=== PATIENT | male | born 1960 | race Caucasian/White ===

== ENCOUNTER 2019-05-28 21:09 | Emergency (ER) | payer OTHER ==
[~2019-05-28 21:09] MED LIST: ISOVUE-370 76%-LOCM 1 ML ONE
[2019-05-28 21:52] LABS: #Basophils 0.1 thou/uL (0.0-0.2); #Eosinphils 0.3 thou/uL (0.0-0.7); #Lymphocytes 1.2 thou/uL (1.20-3.40); #Monocytes 0.9 thou/uL (0.11-0.59); #Neutrophils 3.4 thou/uL (1.40-6.50); %Basophils 1.2 % (0.0-1.0); %Eosinophils 5.4 % (0.0-10.0); %Lymphocytes 20.2 % (21.0-51.0); %Monocytes 14.8 % (0.0-10.0); %Neutrophils 58.4 % (42.0-75.0); Hemoglobin 14.6 g/dL (14.0-18.0); Mean Corpuscular HGB CONC 33.6 g/dL (32.0-36.0); Mean Corpuscular Hemoglobin 30.3 pg (27.0-31.0); Mean Corpuscular Volume 90.2 fL (78.0-98.0); Mean Platelet Volume 7.7 fL (7.4-10.4); Platelet Count 241 thou/uL (130-400); RBC Distribution Width 11.3 % (11.5-14.5); Red Blood Cell (RBC) Count 4.82 mill/uL (4.70-6.10); White Blood Cell (WBC) Count 5.8 thou/uL (4.8-10.8)
[2019-05-28 22:13] LABS: ALT (SGPT) 23 U/L (8-55); AST (SGOT) 25 U/L (5-34); Albumin 4.4 g/dL (3.5-5.0); Alkaline Phosphatase 87 U/L (40-150); Anion Gap 15 mmol/L (10-20); BUN (Urea Nitrogen) 13 mg/dL (8.4-25.7); Bilirubin, Total 0.5 mg/dL (0.2-1.2); Calc. Creatinine Clearance 0 mL/min (70-130); Calcium 9.7 mg/dL (7.8-10.44); Carbon Dioxide 22 mmol/L (22-29); Chloride 103 mmol/L (98-107); Estimated GFR-MDRD 76; Globulin 3.5 g/dL (2.4-3.5); Glucose 85 mg/dL (70-105); Protein, Total 7.9 g/dL (6.0-8.3); Sodium 136 mmol/L (136-145)
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
== END 2019-05-28 23:50 | disposition home or self-care (01) ==
LOC: ERS 21:09
DX: K62.5 Hemorrhage of anus and rectum (principal)
CPT/HCPCS: 36415; 74177; 80053; 82274; 85025

== ENCOUNTER 2021-01-02 15:34 | Day surgery (SDC) | payer OTHER ==
[2021-01-02 16:39] LABS: #Basophils 0.1 thou/uL (0.0-0.2); #Eosinphils 0.1 thou/uL (0.0-0.7); #Lymphocytes 1.4 thou/uL (1.20-3.40); #Monocytes 1.1 thou/uL (0.11-0.59); #Neutrophils 7.9 thou/uL (1.40-6.50); %Basophils 0.8 % (0.0-1.0); %Eosinophils 0.8 % (0.0-10.0); %Monocytes 10.7 % (0.0-10.0); %Neutrophils 74.6 % (42.0-75.0); Hemoglobin 14.4 g/dL (14.0-18.0); Mean Corpuscular HGB CONC 34.3 g/dL (32.0-36.0); Mean Corpuscular Hemoglobin 30.6 pg (27.0-31.0); Mean Corpuscular Volume 89.3 fL (78.0-98.0); Mean Platelet Volume 7.7 fL (7.4-10.4); Platelet Count 251 thou/uL (130-400); Red Blood Cell (RBC) Count 4.69 mill/uL (4.70-6.10); White Blood Cell (WBC) Count 10.6 thou/uL (4.8-10.8)
--- NOTE | 2021-01-02 16:52 | CT ---
CT FACIAL BONES WITHOUT CONTRAST: Indications: Dental abscess to right jaw. FINDINGS: Exam is severely limited due to lack of IV contrast. Evaluation of inguinal and buckle abscess extens ion from periapical tooth abscess is limited without IV contrast. There is haziness throughout the subcutaneous tissues of the right face surrounding the right mandibl e. There is abnormal lucency along the buckle side of the right mandible, suggesting inflammatory tami nge. A small abscess at this site cannot be excluded. There is lucency surrounding the roots of a rig ht mandibular premolar which may be the site of infection. No definite cortical disruption is identif ied. No evidence of lingula side inflammation of abscess. Other soft tissues of the neck are unremarkable including parotid glands, submandibular glands, The n asopharynx, oropharynx and visualized Hypopharynx unremarkable. Nonspecific cervical chain adenopathy. Several enlarged lymph nodes in the right submandibular regio n. IMPRESSION: 1. Evidence of cellulitis in the subcutaneous tissues of the right face over the right mandible. There is abnormal density along the buckle side of the right mandible near the site of a right sly bular pre-molar which shows lucency surrounding the roots indicating a periapical abscess. This may b e site of origin of the buckle infection. Small buckle abscess cannot be excluded although is poorly evaluated on this unenhanced study. POS: MARIBEL
[2021-01-02] MEDS ORDERED: Chlorhexidine Gluconate 15 ML UDCUP SSP ONE (16:58)
[2021-01-02] MEDS ORDERED: Bacitracin Zinc Ointment 30 gm TUBE ONE (16:58)
[2021-01-02] MEDS ORDERED: XYLOCAINE 2%-EPI 1:100,000 20 ML VIAL ONE (16:58)
[2021-01-02] MEDS ORDERED: Sodium Chloride 0.9% 10 ML ONE (16:58)
[2021-01-02 17:00] LABS: ALT (SGPT) 22 U/L (8-55); AST (SGOT) 20 U/L (5-34); Albumin 4.7 g/dL (3.4-4.8); Alkaline Phosphatase 87 U/L (40-110); Anion Gap 16 mmol/L (10-20); BUN (Urea Nitrogen) 10 mg/dL (8.4-25.7); Bilirubin, Total 0.7 mg/dL (0.2-1.2); Calc. Creatinine Clearance 0 mL/min (70-130); Calcium 9.7 mg/dL (7.8-10.44); Carbon Dioxide 27 mmol/L (23-31); Chloride 99 mmol/L (98-107); Globulin 3.8 g/dL (2.4-3.5); Glucose 98 mg/dL (80-115); Potassium 4.2 mmol/L (3.5-5.1); Protein, Total 8.5 g/dL (5.8-8.1); Sodium 138 mmol/L (136-145)
[2021-01-02] MEDS ORDERED: Clindamycin/D5W 600 mg/50 ml Premix Bag ONE (17:14)
[2021-01-02] MEDS ORDERED: Fentanyl 100 MCG/2 ML VIAL ONE (17:35)
[2021-01-02] MEDS ORDERED: Midazolam HCl 2 mg/2 ml Vial ONE (17:40)
[2021-01-02] MEDS ORDERED: PROPOFOL 20 ML ONE (17:41)
[2021-01-02 17:47] LABS: SARS-CoV-2 NAA Rapid Test Not Detected (NotDetected)
[2021-01-02] MEDS ORDERED: HYDROcodone/Acetaminophen 5/325 mg Tablet ONE (18:30)
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
--- NOTE | 2021-01-04 14:07 | OP ---
DATE OF PROCEDURE: 01/02/2021 PREOPERATIVE DIAGNOSIS: Right vestibular and buccal space infection, nonrestorable tooth #29. POSTOPERATIVE DIAGNOSIS: Right vestibular space infection, nonrestorable tooth #29, cellulitic involvement of buccal space. PROCEDURES PERFORMED: 1. Extraction of tooth #29. 2. Incision and drainage of right vestibular space infection. FILTER TANK TENDER HELPER: None. ESTIMATED BLOOD LOSS: Less than 5 mL. FINDINGS: Tooth #29 noted to have type 2 mobility, extensive decay, extending down to the level of the alveolar crest deemed nonrestorable. Periapical abscess associated with apex of tooth #29 extension into the vestibular abscess due to buccal fenestration laterally, cellulitic involvement of the buccal space. 1-2 mL of purulence was expressed. DISPOSITION: Patient extubated and transferred to the PACU with spontaneous respirations intact. INDICATIONS: On the day of surgery, the patient was met in the preoperative holding area from a straight admit from the emergency department. After clinical and radiographic exam, it was noted that the patient would benefit from extraction of tooth #29 with incision and drainage of right vestibular space infection, possible buccal space infection. Discussed risks, benefits, indications, alternatives. Options for outpatient treatment were given. The patient declined and elected to continue in the operating room setting of the hospital due to patient's desire for urgent treatment. Informed consent was completed. The patient site's and identity were confirmed. PROCEDURE IN DETAIL: The patient was then transferred to [facility]. Cardiopulmonary monitors were applied. The patient then had a local MAC performed through total intravenous anesthesia. Next, turned our attention to the right mandible. Using 6 mL of 2% lidocaine with 1:100,000 epinephrine was delivered in the inferior alveolar nerve block and a right mental nerve block. Bite block and appropriate retractors were positioned. Peridex scrub was performed. The patient was then prepped in the standard sterile fashion. Next, using a 15 blade, made a sulcular incision extending from tooth #29 anteriorly to tooth #27. Full-thickness flap was reflected. No incisions were made along the implant at site #30. Care was taken to avoid any involvement with that implant. Next, using forceps, delivered tooth #29. Curettage of site was performed, then in a subperiosteal plane the right vestibular space and buccal space. 1-2 mL of purulence was expressed. Copious saline irrigation, which was reconstituted 1 L with 50,000 units of bacitracin powder. At this point, procedure was deemed complete. One 5-0 chromic gut suture was used to reapproximate the papilla at distal tooth #28/27. No Francia was needed. Hemostasis was confirmed. The patient was then transferred to the PACU with spontaneous respirations intact. Job ID: [id number]
== END 2021-01-02 19:27 | disposition home or self-care (01) ==
LOC: ERS 15:34 → SDC/OP 18:12
PROVIDERS: ATTEND Surgery
PROC: 0CDXXZ0 Extraction of Lower Tooth, Single, External Approach (ICD-10-PCS; principal; 2021-01-02)
PROC: 0W930ZZ Drainage of Oral Cavity and Throat, Open Approach (ICD-10-PCS; principal; 2021-01-02)
DX: K04.7 Periapical abscess without sinus (principal); K12.2 Cellulitis and abscess of mouth; E78.5 Hyperlipidemia, unspecified; H93.19 Tinnitus, unspecified ear; E78.00 Pure hypercholesterolemia, unspecified; Z79.899 Other long term (current) drug therapy; Z88.1 Allergy status to other antibiotic agents; Z20.822 Contact with and (suspected) exposure to COVID-19
CPT/HCPCS: 36415; 70486; 80053; 85025; J2250; J2704; J3010; J3490; U0002